=== PATIENT | male | born 1950 | race Caucasian/White ===

== ENCOUNTER 2024-07-02 13:41 | Outpatient (CLI) | payer MEDICARE, SELFPAY ==
--- NOTE | ~2024-07-02 | MR_ITS ---
MRI of the left elbow MEDICAL HISTORY: Pain TECHNIQUE: Proton-density and proton-density fat-sat images were performed in the axial, coronal, and sagittal planes. FINDINGS: Ulnar collateral ligament is intact. Radial collateral ligament and the lateral ulnar colla teral ligament are intact. There is mild tendinosis at the common extensor tendon origin at the later al epicondyle of the humerus. Common flexor tendon origin is intact. Bone marrow signals are unremarkable. Small elbow joint effusion present. There is complete rupture of the distal biceps tendon from its radial insertion, with retraction of a t least 6 cm. There is extensive surrounding soft tissue fluid about the retracted distal biceps tend on. Brachialis tendon and triceps tendons are intact. No other soft tissue mass or fluid collection e vident. IMPRESSION: Complete rupture of the distal biceps tendon from its radial insertion, with retraction of at least 6 cm. Associated surrounding soft tissue edema and fluid. Small elbow joint effusion, nonspecific. Mild tendinosis of the common extensor tendon origin. Reviewed, dictated and finalized at location . IMPRESSION: Complete rupture of the distal biceps tendon from its radial insertion, with re traction of at least 6 cm. Associated surrounding soft tissue edema and fluid. Small elbow joint effusion, nonspecific. Mild tendinosis of the common extensor tendon origin.
== END 2024-07-02 13:42 | disposition home or self-care (01) ==
LOC: GOSHIMG 13:43
PROVIDERS: PCP Orthopaedic Surgery; Visit Provider Orthopaedic Surgery
DX: M25.422 Effusion, left elbow (principal); S46.212A Strain of muscle, fascia and tendon of other parts of biceps, left arm, initial encounter; X58.XXXA Exposure to other specified factors, initial encounter
CPT/HCPCS: 73221